=== PATIENT | female | born 1940 | race Caucasian/White ===

== ENCOUNTER 2023-11-04 08:21 | Day surgery (SDC) | payer OTHER, SELFPAY ==
[2023-10-28 13:15] VITALS: BMI 27.3
[2023-11-04] VITALS (7 sets, daily range): BP systolic 145–191; BP diastolic 62–80; PULSE 55–62; RESP 16; TEMP 36.3–36.7; O2SAT 93–99; BMI 27.3
--- NOTE | 2023-11-04 09:19 | PM.PREOP ---
Pre-operative Note COVID-19 COVID-19 status: Not tested Interval Note History & Physical reviewed/Exam performed by Physician: Yes Changes to H&P: No ASA Class (for procedural sedation): III
[2023-11-04] MEDS: LACTATED RINGERS 1,000 ML 100 ML IV ×2 (09:24→11:03)
[2023-11-04] MEDS: CEFAZOLIN 2 GM/100 ML PREMIX 100 ML IV (09:53)
--- NOTE | 2023-11-04 10:03 | SUR.OPER ---
Supine on padded OR bed, head on pillow, arms secured on padded arm boards at <90 degrees abduction, legs uncrossed, safety belt at thigh, tape over blanket over lower legs.
[2023-11-04] MEDS: BUPIVACAINE 0.5% (PF) 30 ML, EPINEPHrine 0.15 MG INJ (10:09)
--- NOTE | 2023-11-04 11:37 | PM.OP.1 ---
Operative Date/Time/Diagnoses Date of procedure: 11/04/23 Time of procedure: 11:37 Pre-op diagnosis: Bilateral inguinal hernia and umbilical hernia Post-op diagnosis: same Procedure & Clinicians Procedure: Open left inguinal hernia repair with mesh Open umbilical hernia repair with mesh Same procedure as scheduled: Yes Surgeon: Kyle Taylor Operative Notes Procedure in detail: Preoperative antibiotic was administered. The patient was brought to the operating room and placed on the table in supine position general anesthesia was induced. The left groin was prepped and draped in the normal fashion and a time-out was performed. Roughly 10 mL of local anesthetic were injected into the skin and subcutaneous adipose tissue over the left groin. A 5 cm incision was made over the left inguinal canal. Dissection was carried down through the subcutaneous adipose tissue. A bridging vein was cauterized. We exposed the external oblique aponeurosis in the direction of the fibers. Additional local was injected deep to the aponeurosis. A 15 blade scalpel was used to matt the external oblique aponeurosis. Metzenbaum scissors were used to carefully open the aponeurosis in the direction of the fibers. We completely exposed the inguinal canal. The cord was dissected free from the inguinal ligament and floor of the inguinal canal and the external oblique aponeurosis was dissected off of the internal oblique taking care not to injure the hypogastric nerve. There was a fatty indirect hernia that we dissected from the surrounding tissues. We amputated the round ligament. We placed a polypropylene mesh over the inguinal canal floor. The mesh was secured with multiple interrupted 3-0 Prolene sutures to the pubic tubercle and shelving edge of the inguinal ligament as well as to the conjoint tendon medially. We injected some more local into the fatty tissue in the inguinal canal and cord. The external oblique fascia was closed with a running 3-0 Vicryl suture. The skin was closed with interrupted 3-0 Vicryl dermal sutures and a running 4 Monocryl subcuticular stitch. We then moved onto the umbilicus. We made 3 cm infraumbilical curvilinear incision. We dissected the umbilical stalk free from the abdominal wall. There was a 2 cm fascial defect containing fatty contents. We reduced the fatty contents and closed the fascia with 4 interrupted 0 Ethibond sutures. We then placed a 4 cm oval disc of mesh over the closure. And secured it with Tisseel. We tacked the umbilical stalk back down to the deep fatty tissue. We then closed the incision in layers using multiple interrupted 3-0 Vicryl dermal sutures followed by a running 4-0 Monocryl subcuticular stitch. Steri-Strips and dressings were applied. EBL 10 mL The patient was awakened and brought to recovery room. Post-operative Condition: stable Disposition: PACU
[2023-11-04] MEDS: ACETAMINOPHEN 325 MG TABLET 650 MG PO (12:00)
[2023-11-04] MEDS: ONDANSETRON 4 MG/2 ML INJ IV (12:22)
[2023-11-04] MEDS: OXYCODONE IR 5 MG TABLET PO (12:42)
--- NOTE | 2023-11-04 12:43 | SUR.PHASEII ---
Patient reported discomfort to LLQ, ice applied, oxycodone given. Patient then denied pain.
== END 2023-11-04 13:09 | disposition home or self-care (01) ==
PROVIDERS: PCP Family Medicine; Referring Provider Surgery; Visit Provider Surgery
PROC: (CPT 49591; principal; 2023-11-04 09:45)
PROC: (CPT 49591; 2023-11-04 09:45)
DX: K40.90 Unilateral inguinal hernia, without obstruction or gangrene, not specified as recurrent (principal); K42.9 Umbilical hernia without obstruction or gangrene
CPT/HCPCS: 49591; 49505; J0171; J0330; J0690; J1100; J2405; J2704; J3010

== ENCOUNTER → 2024-04-14 | Outpatient (CLI) | payer MEDICARE, SELFPAY ==
--- NOTE | 2024-04-14 09:07 | DI.NM.S_ITS ---
DATE OF SERVICE: 04/14/2024 CARDIAC NUCLEAR PERFUSION STUDY Procedure: Pharmacologic vasodilator stress and rest myocardial perfusion imaging with gating to assess ejection fraction and regional wall motion. Ordering Provider: Michael Mayorga DO Indications: The patient is an 84-year-old female with exertional dyspnea. Cardiac Stress: Per protocol, 0.4 mg of regadenoson was infused with a normal hemodynamic response. She had no chest discomfort or other anginal symptoms with stress. Her resting ECG shows sinus rhythm with significant ST depression and T-wave inversions in inferolateral leads in a pattern suggestive of a hypertensive strain pattern. With stress, there are no significant ST-segment shifts. She had occasional PVCs, rarely in couplets, but no other complex ventricular ectopy. Per protocol, 26.2 millicuries of technetium-99 Myoview was injected and she was imaged 15 minutes later using a gated SPECT acquisition protocol. Earlier in the day while at rest, she had been injected with 10.9 millicuries of technetium-99 Myoview and was imaged 15 minutes later, again using a gated SPECT acquisition protocol. Findings: 1. Raw data. There is fairly good myocardial tracer uptake although fairly prominent breast shadows are noted across the proximal anterior wall. The lung/heart ratio is significantly elevated at 0.77, although is nonspecific with vasodilator stress and is not clearly visually evident and thus lacks specificity. TID ratio is normal at 1.09. 2. Quantitated gated SPECT: Post-stress ejection fraction is estimated at 74% without any focal wall motion abnormality and specifically the proximal and mid anterior wall have normal contractility. The resting ejection fraction is estimated at 70% with a mildly elevated end-diastolic volume of 139 mL. 3. Myocardial perfusion imaging: Post-stress supine images show a fairly normal myocardial perfusion pattern except a mild defect in the proximal to mid anterior wall in a pattern consistent with breast attenuation artifact, supported by its near-complete resolution on the prone images. There are no other perfusion defects. The resting images show an identical perfusion pattern without any areas of improvement. Impression: 1. Probable normal myocardial perfusion study. 2. Subtle, fixed proximal to mid anterior defect that nearly completely resolves on prone imaging, most consistent with breast attenuation artifact. There is no compelling evidence for a myocardial ischemia or previous myocardial infarction. 3. Normal left ventricular systolic function with mildly increased left ventricular volumes and no focal wall motion abnormality. While the lung/heart ratio is elevated at 0.77, which can be an indication of pulmonary congestion, this is nonspecific given the use of vasodilator stress and with the absence of any visual appearance of increased lung uptake. Clinical correlation is recommended. 4. No angina or ECG evidence of ischemia with pharmacologic vasodilator stress. The resting ECG suggests possible left ventricular hypertrophy with a strain pattern. She had occasional PVCs, rarely in couplets, but no other arrhythmias. dd: 04/14/2024 16:15:00 DICTATING MD/COPIES TO Oli Hunter MD;
--- NOTE | 2024-04-23 10:41 | DI.NM.S_ITS ---
DATE OF SERVICE: 04/14/2024 CARDIAC NUCLEAR PERFUSION STUDY PROCEDURE: Pharmacologic vasodilator stress and rest myocardial perfusion imaging with gating to assess ejection fraction and regional wall motion. ORDERING PROVIDER: Michael Mayorga DO INDICATIONS: The patient is an 84-year-old female with exertional dyspnea. CARDIAC STRESS: Per protocol, 0.4 mg of regadenoson was infused with a normal hemodynamic response. She had no chest discomfort or other anginal symptoms with stress. Her resting ECG shows sinus rhythm with significant ST depression and T-wave inversions in inferolateral leads in a pattern suggestive of a hypertensive strain pattern. With stress, there are no significant ST-segment shifts. She had occasional PVCs, rarely in couplets, but no other complex ventricular ectopy. Per protocol, 26.2 millicuries of technetium-99 Myoview was injected and she was imaged 15 minutes later using a gated SPECT acquisition protocol. Earlier in the day while at rest, she had been injected with 10.9 millicuries of technetium-99 Myoview and was imaged 15 minutes later, again using a gated SPECT acquisition protocol. FINDINGS: 1. Raw data. There is fairly good myocardial tracer uptake, but fairly prominent breast shadows noted across the proximal anterior wall. The lung/heart ratio is significantly elevated at 0.77, although is nonspecific with vasodilator stress and is not clearly visually evident and does lack specificity. TID ratio is normal at 1.09. 2. Quantitated gated SPECT: Post-stress ejection fraction is estimated at 74% without any focal wall motion abnormality and specifically the proximal and mid anterior wall have normal contractility. The resting ejection fraction is estimated at 70% with borderline elevated end-diastolic volume of 139 mL. 3. Myocardial perfusion imaging: Post-stress supine images show a fairly normal myocardial perfusion pattern, although with a mild defect in the proximal to mid anterior wall in a pattern consistent with breast attenuation artifact, supported by its near-complete resolution on the prone images. There are no other perfusion defects. The resting images show an identical perfusion pattern without any areas of improvement. IMPRESSION: 1. Normal myocardial perfusion study. 2. Subtle fixed proximal to mid anterior defect that nearly completely resolves on prone imaging, most consistent with breast attenuation artifact. There is no compelling evidence for a myocardial ischemia or previous myocardial infarction. 3. Normal left ventricular systolic function with mildly increased left ventricular volumes and no focal wall motion abnormality. While the lung/heart ratio is elevated at 0.77, which can be an indication of pulmonary congestion, this is relatively nonspecific given the use of vasodilator stress in the absence of any visual appearance of increased lung uptake. Clinical correlation is recommended. 4. No angina or ECG evidence of ischemia with pharmacologic vasodilator stress. The resting ECG suggests a possible left ventricular hypertrophy with strain pattern. She had occasional premature ventricular contractions, rarely in couplets, but no other arrhythmias. ZohrehTammy - CARSON/raad/MICKY doc#: [id number]/job#: [id number] dd: 04/14/2024 16:15:00 dt: 04/14/2024 21:07:00 DICTATING MD/COPIES TO: Oli Hunter MD; Michael Mayorga, COPIES MNE: MEL;
== END ==
LOC: NUCM 08:44
PROVIDERS: PCP Family Medicine; Referring Provider Family Medicine; Visit Provider Family Medicine
DX: R01.1 Cardiac murmur, unspecified (principal); R06.00 Dyspnea, unspecified
CPT/HCPCS: 78452; 93017; A9502; J2785

== ENCOUNTER → 2025-07-05 09:22 | Outpatient (CLI) | payer MEDICARE, SELFPAY ==
--- NOTE | 2025-07-05 09:23 | DI.US.S_ITS ---
PROCEDURE: US ABDOMEN COMPLETE INDICATIONS: Abdominal pain after eating TECHNIQUE: Real-time scanning was performed of the abdominal and retroperitoneal organs, with image documentation. COMPARISON: [facility], RG, CT ABDOMEN/PELVIS WITH CONTRAST, 07/28/2023, 14:14. FINDINGS: Liver: Liver is normal in size and homogeneous in echotexture. Gallbladder: No gallstones identified. Normal gallbladder wall. No pericholecystic fluid. Negative sonographic Curry sign. Biliary ducts: Intrahepatic bile ducts are non-dilated. Extrahepatic bile duct caliber measures 4.7 mm. Normal is 6-7 mm or less in diameter, or 10 mm or less post-cholecystectomy. Pancreas: Visualized portions of the pancreas are sonographically normal. Spleen: Spleen is normal in size and homogeneous in echotexture. Kidneys: Kidneys are normal in size and echotexture. Right kidney measures 10.7 cm long; left kidney measures 9.1 cm long. No hydronephrosis or nephrolithiasis. No solid masses. Multiple bilateral subcentimeter renal cysts. Aorta: Visualized aorta is normal in caliber at less than 3 cm. Vascular calcifications indicate atherosclerosis. Iliacs: Proximal common iliac arteries are normal in caliber at less than 2.5 cm. IVC: Intrahepatic inferior vena cava is patent. Miscellaneous: No free abdominal fluid. Possible right iliac artery stenosis where velocities are elevated to 465 centimeters/second partially imaged. IMPRESSION: 1. No source for abdominal pain identified. 2. Multiple bilateral subcentimeter renal cysts. 3. Probable right common iliac artery stenosis partially imaged. If indicated, formal duplex Doppler examination could be performed for further assessment. If pain persists, consider cross-sectional imaging such as CT or MRI. Dictated by: Adalberto SHARIF Interpreted: Thony Curtis MD on 07/05/2025 at 10:40 Transcribed by: LACHELLE on 07/05/2025 at 10:42 Approved by: Thony Curtis M.D. on 07/14/2025 at 7:53
== END ==
PROVIDERS: PCP Family Medicine; Referring Provider Surgery; Visit Provider Surgery
DX: N28.1 Cyst of kidney, acquired (principal); R10.9 Unspecified abdominal pain
CPT/HCPCS: 76700